=== PATIENT | female | born 1990 | race African-American/Black ===

== ENCOUNTER 2024-04-26 22:17 | Inpatient (IN) | payer OTHER ==
[2024-04-26 23:16] VITALS: BMI 17.9
[2024-04-26] MEDS ORDERED: guaiFENesin 600 MG TABLET.ER (FP) PO PRN (23:30)
[2024-04-26] MEDS ORDERED: IBUPROFEN 400 MG TABLET (FP) PO PRN (23:30)
[2024-04-26] MEDS ORDERED: POLYETHYLENE GLYCOL (HEALTHYLAX) 3350 17 GM PACKET PO PRN (23:30)
[2024-04-26] MEDS ORDERED: BENZONATATE 200 MG CAPSULE PO PRN (23:30)
[2024-04-26] MEDS ORDERED: LOPERAMIDE HCL 2 MG CAPSULE PO PRN (23:30)
[2024-04-26] MEDS ORDERED: DICYCLOMINE HCL 10 MG CAPSULE PO PRN (23:30)
[2024-04-26] MEDS ORDERED: ONDANSETRON *ODT* 4 MG TABLET SL PRN (23:30)
[2024-04-26] MEDS ORDERED: BENZOCAINE/MENTHOL (CHLORASEPTIC ) LOZENGE MM PRN (23:30)
[2024-04-26] MEDS ORDERED: MAGNESIUM HYDROX 2400MG/30ML ORAL SUSPENSION 30 ML CUP PO PRN (23:30)
[2024-04-26] MEDS ORDERED: BISMUTH SUBSALICYLATE 524 MG/30 ML PO PRN (23:30)
[2024-04-26] MEDS ORDERED: MAG HYDROX/AL HYDROX/SIMETH 30 ML UNIT-DOSE CUP PO PRN (23:30)
[2024-04-26] MEDS ORDERED: propRANOLol HCL 10 MG TABLET PO ONE (23:55)
[2024-04-27] MEDS: IBUPROFEN 600 MG TABLET (FP) PO PRN (01:32)
[2024-04-27] MEDS: propRANOLol HCL 10 MG TABLET PO ONE (01:32)
[2024-04-27] MEDS ORDERED: chlordiazePOXIDE HCL 25 MG CAPSULE PO PRN (09:23)
[2024-04-27] MEDS: chlordiazePOXIDE HCL 25 MG CAPSULE PO SCH (10:03)
[2024-04-27] MEDS: PRENATAL VITAMINS W/ FOLIC ACID TABLET (FP) PO SCH (10:03)
[2024-04-27] MEDS: ACETAMINOPHEN 325 MG TABLET (FP) PO PRN (17:19)
[2024-04-27] MEDS: MELATONIN 5 MG TABLETS PO SCH (22:11)
[2024-04-27] MEDS: THIAMINE 100 MG TABLET PO SCH (22:12)
[2024-04-27] MEDS: METHOCARBAMOL 500 MG TABLET PO PRN (22:12)
[2024-04-28 12:09] LABS: EOS % 4.9 % (0-4.5); HEMATOCRIT 36.3 % (32.4-45.2); HEMOGLOBIN 11.7 GM/dL (10.7-15.3); LYMPH % 33.3 % (8-40); MCH 27.2 pg (25.7-33.7); MCHC 32.1 g/dl (32.0-36.0); MEAN CELL VOLUME 84.8 fl (80-96); MEAN PLT VOLUME 9.1 fl (7.5-11.1); MONO % 13.3 % (3.8-10.2); NEUT % 47.5 % (42.8-82.8); PLATELET COUNT 141 10^3/uL (134-434); RBC 4.28 M/mm3 (3.60-5.2); RDW 14.3 % (11.6-15.6); WHITE BLOOD COUNT 4.1 K/mm3 (4.0-10.0)
[2024-04-29] MEDS: chlordiazePOXIDE HCL 25 MG CAPSULE PO SCH (05:42)
[2024-04-29] MEDS: hydrOXYzine PAMOATE 25 MG CAPSULE (FP) PO PRN (22:11)
[2024-04-30] MEDS ORDERED: chlordiazePOXIDE HCL 10 MG CAPSULE PO PRN
[2024-04-30] MEDS: chlordiazePOXIDE HCL 10 MG CAPSULE PO SCH (05:35)
[2024-05-01] MEDS: chlordiazePOXIDE HCL 10 MG CAPSULE PO SCH (05:54)
[2024-05-02] MEDS: chlordiazePOXIDE HCL 10 MG CAPSULE PO ONE (05:55)
[2024-05-02 06:56] VITALS: RESP 16
[2024-05-02 09:04] VITALS: BP 131/79; PULSE 68; TEMP 98.1
== END 2024-05-02 08:56 | disposition home or self-care (01) | DRG 775 ==
LOC: YASAS 22:17 → Y3N 23:42
PROVIDERS: ADMIT Allergy & Immunology; ATTEND Surgery
PROC: HZ2ZZZZ Detoxification Services for Substance Abuse Treatment (ICD-10-PCS; principal; 2024-04-26)
DX: F10.230 Alcohol dependence with withdrawal, uncomplicated (principal); F12.20 Cannabis dependence, uncomplicated; F19.24 Other psychoactive substance dependence with psychoactive substance-induced mood disorder; F41.9 Anxiety disorder, unspecified; F43.20 Adjustment disorder, unspecified; R26.89 Other abnormalities of gait and mobility
CPT/HCPCS: 36415; 80305; 80307; 81025; 85025

== ENCOUNTER 2024-05-16 07:00 | Inpatient (IN) | payer OTHER ==
[2024-05-16 07:52] VITALS: BMI 17.4
[2024-05-16] MEDS ORDERED: LOPERAMIDE HCL 2 MG CAPSULE PO PRN (09:04)
[2024-05-16] MEDS ORDERED: NICOTINE POLACRILEX 2 MG GUM BUC PRN (09:04)
[2024-05-16] MEDS ORDERED: MAG HYDROX/AL HYDROX/SIMETH 30 ML UNIT-DOSE CUP PO PRN (09:04)
[2024-05-16] MEDS ORDERED: DICYCLOMINE HCL 10 MG CAPSULE PO PRN (09:04)
[2024-05-16] MEDS ORDERED: guaiFENesin 600 MG TABLET.ER (FP) PO PRN (09:04)
[2024-05-16] MEDS ORDERED: P-EPHED 60MG/TRIPROLIDI 2.5MG TABLET PO PRN (09:04)
[2024-05-16] MEDS ORDERED: BENZONATATE 200 MG CAPSULE PO PRN (09:04)
[2024-05-16] MEDS ORDERED: NICOTINE POLACRILEX 2 MG LOZENGE BC PRN (09:04)
[2024-05-16] MEDS ORDERED: ONDANSETRON *ODT* 4 MG TABLET SL PRN (09:04)
[2024-05-16] MEDS ORDERED: BENZOCAINE/MENTHOL (CHLORASEPTIC ) LOZENGE MM PRN (09:04)
[2024-05-16] MEDS ORDERED: MAGNESIUM HYDROX 2400MG/30ML ORAL SUSPENSION 30 ML CUP PO PRN (09:04)
[2024-05-16] MEDS ORDERED: POLYETHYLENE GLYCOL (HEALTHYLAX) 3350 17 GM PACKET PO PRN (09:04)
[2024-05-16] MEDS ORDERED: ACETAMINOPHEN 325 MG TABLET (FP) PO PRN (09:04)
[2024-05-16] MEDS ORDERED: IBUPROFEN 400 MG TABLET (FP) PO PRN (09:04)
[2024-05-16] MEDS ORDERED: BISMUTH SUBSALICYLATE 524 MG/30 ML PO PRN (09:04)
[2024-05-16] MEDS ORDERED: IBUPROFEN 600 MG TABLET (FP) PO ONE (10:16)
[2024-05-16] MEDS ORDERED: hydrOXYzine PAMOATE 25 MG CAPSULE (FP) PO ONE (10:16)
[2024-05-16] MEDS: MELATONIN 5 MG TABLETS PO SCH (21:14)
[2024-05-16] MEDS: THIAMINE 100 MG TABLET PO SCH (21:14)
[2024-05-17] MEDS: IBUPROFEN 600 MG TABLET (FP) PO PRN (10:10)
[2024-05-17] MEDS ORDERED: diazePAM 5 MG TABLET PO PRN (10:33)
[2024-05-17] MEDS: diazePAM 5 MG TABLET PO SCH (11:51)
[2024-05-17] MEDS: hydrOXYzine PAMOATE 25 MG CAPSULE (FP) PO PRN (17:46)
[2024-05-17] MEDS: METHOCARBAMOL 500 MG TABLET PO PRN (22:34)
[2024-05-19] MEDS: diazePAM 5 MG TABLET PO SCH (05:52)
[2024-05-19 10:12] VITALS: RESP 16
[2024-05-19 13:25] VITALS: BP 134/78; PULSE 82; TEMP 97.6
[2024-05-20] MEDS ORDERED: diazePAM 5 MG TABLET PO SCH (06:00)
[2024-05-21] MEDS ORDERED: diazePAM 5 MG TABLET PO ONE (06:00)
== END 2024-05-19 14:05 | disposition home or self-care (01) | DRG 775 ==
LOC: YASAS 07:00 → Y3N 09:05
PROVIDERS: ADMIT Allergy & Immunology; ATTEND Surgery
PROC: HZ2ZZZZ Detoxification Services for Substance Abuse Treatment (ICD-10-PCS; principal; 2024-05-16)
DX: F10.230 Alcohol dependence with withdrawal, uncomplicated (principal); F12.20 Cannabis dependence, uncomplicated; F17.210 Nicotine dependence, cigarettes, uncomplicated; F41.9 Anxiety disorder, unspecified; Z91.199 Patient's noncompliance with other medical treatment and regimen due to unspecified reason; Z56.0 Unemployment, unspecified; Z59.00 Homelessness unspecified
CPT/HCPCS: 80305; 81025

== ENCOUNTER 2024-05-24 14:50 | Inpatient (IN) | payer OTHER ==
[2024-05-24 15:36] VITALS: BMI 17.9
[2024-05-24] MEDS ORDERED: ACETAMINOPHEN 325 MG TABLET (FP) PO PRN (19:00)
[2024-05-24] MEDS ORDERED: ONDANSETRON *ODT* 4 MG TABLET SL PRN (19:00)
[2024-05-24] MEDS ORDERED: guaiFENesin 600 MG TABLET.ER (FP) PO PRN (19:00)
[2024-05-24] MEDS ORDERED: MAGNESIUM HYDROX 2400MG/30ML ORAL SUSPENSION 30 ML CUP PO PRN (19:00)
[2024-05-24] MEDS ORDERED: BENZONATATE 200 MG CAPSULE PO PRN (19:00)
[2024-05-24] MEDS ORDERED: BENZOCAINE/MENTHOL (CHLORASEPTIC ) LOZENGE MM PRN (19:00)
[2024-05-24] MEDS ORDERED: POLYETHYLENE GLYCOL (HEALTHYLAX) 3350 17 GM PACKET PO PRN (19:00)
[2024-05-24] MEDS ORDERED: IBUPROFEN 400 MG TABLET (FP) PO PRN (19:00)
[2024-05-24] MEDS ORDERED: DICYCLOMINE HCL 10 MG CAPSULE PO PRN (19:00)
[2024-05-24] MEDS ORDERED: MAG HYDROX/AL HYDROX/SIMETH 30 ML UNIT-DOSE CUP PO PRN (19:00)
[2024-05-24] MEDS ORDERED: BISMUTH SUBSALICYLATE 524 MG/30 ML PO PRN (19:00)
[2024-05-24] MEDS ORDERED: LOPERAMIDE HCL 2 MG CAPSULE PO PRN (19:00)
[2024-05-24] MEDS: MELATONIN 5 MG TABLETS PO SCH (21:18)
[2024-05-24] MEDS: IBUPROFEN 600 MG TABLET (FP) PO PRN (21:19)
[2024-05-24] MEDS: METHOCARBAMOL 500 MG TABLET PO PRN (21:19)
[2024-05-24] MEDS: THIAMINE 100 MG TABLET PO SCH (21:20)
[2024-05-25] MEDS: hydrOXYzine PAMOATE 25 MG CAPSULE (FP) PO PRN (10:31)
[2024-05-25 13:04] VITALS: BP 138/87; PULSE 74; RESP 18; TEMP 97.3
== END 2024-05-25 14:06 | disposition other institution (70) | DRG 775 ==
LOC: YASAS 14:50 → Y3N 19:06
PROVIDERS: ADMIT Allergy & Immunology; ATTEND Surgery
PROC: HZ2ZZZZ Detoxification Services for Substance Abuse Treatment (ICD-10-PCS; principal; 2024-05-24)
DX: F10.20 Alcohol dependence, uncomplicated (principal); F10.220 Alcohol dependence with intoxication, uncomplicated; F12.20 Cannabis dependence, uncomplicated; F17.210 Nicotine dependence, cigarettes, uncomplicated; Z87.59 Personal history of other complications of pregnancy, childbirth and the puerperium; Z86.59 Personal history of other mental and behavioral disorders; Z91.199 Patient's noncompliance with other medical treatment and regimen due to unspecified reason; Z59.02 Unsheltered homelessness
CPT/HCPCS: 36415; 80305; 80307; 81025; 86803; 87811

== ENCOUNTER 2024-05-25 14:11 | Inpatient (IN) | payer OTHER ==
[2024-05-25] MEDS ORDERED: ACETAMINOPHEN 325 MG TABLET (FP) PO PRN (16:22)
[2024-05-25] MEDS ORDERED: NICOTINE POLACRILEX 2 MG LOZENGE BC PRN (16:22)
[2024-05-25] MEDS ORDERED: POLYETHYLENE GLYCOL (HEALTHYLAX) 3350 17 GM PACKET PO PRN (16:22)
[2024-05-25] MEDS ORDERED: MAGNESIUM HYDROX 2400MG/30ML ORAL SUSPENSION 30 ML CUP PO PRN (16:22)
[2024-05-25] MEDS ORDERED: BENZONATATE 200 MG CAPSULE PO PRN (16:22)
[2024-05-25] MEDS ORDERED: MAG HYDROX/AL HYDROX/SIMETH 30 ML UNIT-DOSE CUP PO PRN (16:22)
[2024-05-25] MEDS ORDERED: NALOXONE (NARCAN) HCL 4 MG/0.1 ML SPRAY NS PRN (16:22)
[2024-05-25] MEDS ORDERED: NICOTINE POLACRILEX 2 MG GUM BUC PRN (16:22)
[2024-05-25] MEDS ORDERED: NALOXONE HCL 0.4 MG/ML VIAL IVPUSH PRN (16:22)
[2024-05-25] MEDS ORDERED: LOPERAMIDE HCL 2 MG CAPSULE PO PRN (16:22)
[2024-05-25] MEDS ORDERED: NICOTINE 14 MG/24 HOURS TOPICAL PATCH TD PRN (16:22)
[2024-05-25] MEDS ORDERED: guaiFENesin 600 MG TABLET.ER (FP) PO PRN (16:22)
[2024-05-25] MEDS ORDERED: BENZOCAINE/MENTHOL (CHLORASEPTIC ) LOZENGE MM PRN (16:22)
[2024-05-25] MEDS: THIAMINE 100 MG TABLET PO SCH (21:30)
[2024-05-25] MEDS: MELATONIN 5 MG TABLETS PO SCH (21:31)
[2024-05-25] MEDS: hydrOXYzine PAMOATE 25 MG CAPSULE (FP) PO PRN (21:31)
[2024-05-25] MEDS: IBUPROFEN 600 MG TABLET (FP) PO PRN (21:33)
[2024-05-26] MEDS: PRENATAL VITAMINS W/ FOLIC ACID TABLET (FP) PO SCH (10:06)
[2024-05-26] MEDS: SUVOREXANT 10 MG TABLET PO PRN (21:36)
[2024-05-26] MEDS: IBUPROFEN 400 MG TABLET (FP) PO PRN (21:37)
[2024-05-26] MEDS: hydrOXYzine PAMOATE 25 MG CAPSULE (FP) PO PRN (21:37)
[2024-05-27] MEDS: METHOCARBAMOL 500 MG TABLET PO PRN (06:46)
[2024-05-27] MEDS: metoPROLOL SUCCINATE 25 MG TAB.SR.24H (FP) PO SCH (11:10)
[2024-05-27] MEDS: LACTULOSE 20 GM/30 ML UDC (FOR ORAL USE ONLY) PO SCH (13:11)
[2024-05-30] MEDS: SUVOREXANT 10 MG TABLET PO PRN (21:39)
[2024-06-01 06:59] VITALS: RESP 16; TEMP 97.3
[2024-06-02 10:57] VITALS: BP 137/70; PULSE 76
== END 2024-06-02 14:25 | disposition home or self-care (01) | DRG 772 ==
LOC: YASAS 14:11 → Y5N 14:20
PROVIDERS: ADMIT Allergy & Immunology; ATTEND Psychiatry & Neurology Pain Medicine
PROC: HZ42ZZZ Group Counseling for Substance Abuse Treatment, Cognitive-Behavioral (ICD-10-PCS; principal; 2024-05-25)
DX: F10.20 Alcohol dependence, uncomplicated (principal); F10.280 Alcohol dependence with alcohol-induced anxiety disorder; F10.282 Alcohol dependence with alcohol-induced sleep disorder; F32.A Depression, unspecified; F42.9 Obsessive-compulsive disorder, unspecified; F90.9 Attention-deficit hyperactivity disorder, unspecified type; F12.10 Cannabis abuse, uncomplicated; I10 Essential (primary) hypertension; Z87.42 Personal history of other diseases of the female genital tract; Z86.69 Personal history of other diseases of the nervous system and sense organs; Z59.02 Unsheltered homelessness; Z72.0 Tobacco use
CPT/HCPCS: 36415; 82140; 86803

== ENCOUNTER 2024-06-12 20:01 | Inpatient (IN) | payer OTHER ==
[2024-06-12 20:40] VITALS: BMI 17.9
[2024-06-12] MEDS ORDERED: LOPERAMIDE HCL 2 MG CAPSULE PO PRN (21:02)
[2024-06-12] MEDS ORDERED: POLYETHYLENE GLYCOL (HEALTHYLAX) 3350 17 GM PACKET PO PRN (21:02)
[2024-06-12] MEDS ORDERED: IBUPROFEN 600 MG TABLET (FP) PO PRN (21:02)
[2024-06-12] MEDS ORDERED: BENZONATATE 200 MG CAPSULE PO PRN (21:02)
[2024-06-12] MEDS ORDERED: IBUPROFEN 400 MG TABLET (FP) PO PRN (21:02)
[2024-06-12] MEDS ORDERED: ONDANSETRON *ODT* 4 MG TABLET SL PRN (21:02)
[2024-06-12] MEDS ORDERED: MAGNESIUM HYDROX 2400MG/30ML ORAL SUSPENSION 30 ML CUP PO PRN (21:02)
[2024-06-12] MEDS ORDERED: NALOXONE (NARCAN) HCL 4 MG/0.1 ML SPRAY NS PRN (21:02)
[2024-06-12] MEDS ORDERED: BISMUTH SUBSALICYLATE 524 MG/30 ML PO PRN (21:02)
[2024-06-12] MEDS ORDERED: NALOXONE HCL 0.4 MG/ML VIAL IM PRN (21:02)
[2024-06-12] MEDS ORDERED: guaiFENesin 600 MG TABLET.ER (FP) PO PRN (21:02)
[2024-06-12] MEDS ORDERED: BENZOCAINE/MENTHOL (CHLORASEPTIC ) LOZENGE MM PRN (21:02)
[2024-06-12] MEDS ORDERED: ACETAMINOPHEN 325 MG TABLET (FP) PO PRN (21:02)
[2024-06-12] MEDS ORDERED: NICOTINE POLACRILEX 4 MG GUM BUC PRN (21:02)
[2024-06-12] MEDS ORDERED: MAG HYDROX/AL HYDROX/SIMETH 30 ML UNIT-DOSE CUP PO PRN (21:02)
[2024-06-12] MEDS ORDERED: DICYCLOMINE HCL 10 MG CAPSULE PO PRN (21:02)
[2024-06-12] MEDS: MELATONIN 5 MG TABLETS PO SCH (22:16)
[2024-06-12] MEDS: THIAMINE 100 MG TABLET PO SCH (22:16)
[2024-06-12] MEDS: hydrOXYzine PAMOATE 25 MG CAPSULE (FP) PO PRN (22:16)
[2024-06-13] MEDS: NICOTINE 14 MG/24 HOURS TOPICAL PATCH TD SCH (09:38)
[2024-06-13 09:44] LABS: HEMATOCRIT 31.4 % (32.4-45.2); HEMOGLOBIN 10.5 GM/dL (10.7-15.3); MCH 27.1 pg (25.7-33.7); MCHC 33.4 g/dl (32.0-36.0); MEAN CELL VOLUME 81.4 fl (80-96); MEAN PLT VOLUME 9.5 fl (7.5-11.1); PLATELET COUNT 204 10^3/uL (134-434); RBC 3.86 M/mm3 (3.60-5.2); RDW 13.6 % (11.6-15.6); WHITE BLOOD COUNT 3.2 K/mm3 (4.0-10.0)
[2024-06-13 09:47] LABS: CALCIUM 8.5 mg/dL (8.5-10.1)
[2024-06-13 09:48] LABS: ALBUMIN 3.5 g/dl (3.4-5.0); BLOOD UREA NITROGEN 8.4 mg/dL (7-18)
[2024-06-13 09:51] LABS: CREATININE 0.5 mg/dL (0.55-1.3)
[2024-06-13 09:53] LABS: BILIRUBIN,TOTAL 0.4 mg/dL (0.2-1); TOT PROT 6.6 g/dl (6.4-8.2)
[2024-06-13] MEDS ORDERED: diazePAM 5 MG TABLET PO PRN (18:45)
[2024-06-13 22:41] VITALS: RESP 16
[2024-06-14] MEDS: diazePAM 5 MG TABLET PO SCH (00:05)
[2024-06-14 06:40] VITALS: TEMP 97.1
[2024-06-14] MEDS: metoPROLOL SUCCINATE 25 MG TAB.SR.24H (FP) PO SCH (10:28)
[2024-06-14 13:27] VITALS: BP 116/65; PULSE 85
[2024-06-15] MEDS ORDERED: diazePAM 5 MG TABLET PO SCH (06:00)
[2024-06-16] MEDS ORDERED: diazePAM 5 MG TABLET PO SCH (06:00)
[2024-06-17] MEDS ORDERED: diazePAM 5 MG TABLET PO ONE (06:00)
== END 2024-06-14 14:42 | disposition home or self-care (01) | DRG 775 ==
LOC: YASAS 20:01 → Y6N 21:16
PROVIDERS: ADMIT Allergy & Immunology; ATTEND Surgery
PROC: HZ2ZZZZ Detoxification Services for Substance Abuse Treatment (ICD-10-PCS; principal; 2024-06-12)
DX: F10.230 Alcohol dependence with withdrawal, uncomplicated (principal); F12.20 Cannabis dependence, uncomplicated; F17.290 Nicotine dependence, other tobacco product, uncomplicated; F41.9 Anxiety disorder, unspecified; I10 Essential (primary) hypertension; R51.9 Headache, unspecified
CPT/HCPCS: 36415; 80053; 80305; 80307; 81025; 85027; 86780

== ENCOUNTER 2024-06-24 16:11 | Inpatient (IN) | payer OTHER ==
[2024-06-24 17:23] VITALS: BMI 17.9
[2024-06-24] MEDS ORDERED: guaiFENesin 600 MG TABLET.ER (FP) PO PRN (18:56)
[2024-06-24] MEDS ORDERED: ONDANSETRON *ODT* 4 MG TABLET SL PRN (18:56)
[2024-06-24] MEDS ORDERED: MAGNESIUM HYDROX 2400MG/30ML ORAL SUSPENSION 30 ML CUP PO PRN (18:56)
[2024-06-24] MEDS ORDERED: MAG HYDROX/AL HYDROX/SIMETH 30 ML UNIT-DOSE CUP PO PRN (18:56)
[2024-06-24] MEDS ORDERED: NICOTINE POLACRILEX 2 MG LOZENGE BC PRN (18:56)
[2024-06-24] MEDS ORDERED: BENZOCAINE/MENTHOL (CHLORASEPTIC ) LOZENGE MM PRN (18:56)
[2024-06-24] MEDS ORDERED: BISMUTH SUBSALICYLATE 524 MG/30 ML PO PRN (18:56)
[2024-06-24] MEDS ORDERED: ACETAMINOPHEN 325 MG TABLET (FP) PO PRN (18:56)
[2024-06-24] MEDS ORDERED: BENZONATATE 200 MG CAPSULE PO PRN (18:56)
[2024-06-24] MEDS ORDERED: LOPERAMIDE HCL 2 MG CAPSULE PO PRN (18:56)
[2024-06-24] MEDS ORDERED: IBUPROFEN 400 MG TABLET (FP) PO PRN (18:56)
[2024-06-24] MEDS ORDERED: DICYCLOMINE HCL 10 MG CAPSULE PO PRN (18:56)
[2024-06-24] MEDS ORDERED: NICOTINE POLACRILEX 2 MG GUM BUC PRN (18:56)
[2024-06-24] MEDS ORDERED: POLYETHYLENE GLYCOL (HEALTHYLAX) 3350 17 GM PACKET PO PRN (18:56)
[2024-06-24] MEDS: THIAMINE 100 MG TABLET PO SCH (21:11)
[2024-06-24] MEDS: MELATONIN 5 MG TABLETS PO SCH (21:11)
[2024-06-24] MEDS: hydrOXYzine PAMOATE 25 MG CAPSULE (FP) PO PRN (21:11)
[2024-06-25] MEDS: IBUPROFEN 600 MG TABLET (FP) PO PRN (11:38)
[2024-06-25] MEDS ORDERED: metoPROLOL SUCCINATE 25 MG TAB.SR.24H (FP) PO SCH (15:00)
[2024-06-25] MEDS: metoPROLOL SUCCINATE 25 MG TAB.SR.24H (FP) PO SCH (15:10)
[2024-06-25] MEDS: METHOCARBAMOL 500 MG TABLET PO PRN (18:19)
[2024-06-26 12:19] VITALS: BP 121/86; PULSE 64; RESP 17; TEMP 97.7
== END 2024-06-26 13:36 | disposition home or self-care (01) | DRG 775 ==
LOC: YASAS 16:11 → Y3N 20:25
PROVIDERS: ADMIT Allergy & Immunology; ATTEND Surgery
PROC: HZ2ZZZZ Detoxification Services for Substance Abuse Treatment (ICD-10-PCS; principal; 2024-06-24)
DX: F10.230 Alcohol dependence with withdrawal, uncomplicated (principal); F12.20 Cannabis dependence, uncomplicated; F17.210 Nicotine dependence, cigarettes, uncomplicated; I10 Essential (primary) hypertension
CPT/HCPCS: 80305; 80307; 81025

== ENCOUNTER 2024-07-02 15:12 | Inpatient (IN) | payer OTHER ==
[2024-07-02 15:35] VITALS: BMI 16.6
[2024-07-02] MEDS ORDERED: BENZOCAINE/MENTHOL (CHLORASEPTIC ) LOZENGE MM PRN (17:16)
[2024-07-02] MEDS ORDERED: ONDANSETRON *ODT* 4 MG TABLET SL PRN (17:16)
[2024-07-02] MEDS ORDERED: POLYETHYLENE GLYCOL (HEALTHYLAX) 3350 17 GM PACKET PO PRN (17:16)
[2024-07-02] MEDS ORDERED: MAG HYDROX/AL HYDROX/SIMETH 30 ML UNIT-DOSE CUP PO PRN (17:16)
[2024-07-02] MEDS ORDERED: LOPERAMIDE HCL 2 MG CAPSULE PO PRN (17:16)
[2024-07-02] MEDS ORDERED: IBUPROFEN 400 MG TABLET (FP) PO PRN (17:16)
[2024-07-02] MEDS ORDERED: DICYCLOMINE HCL 10 MG CAPSULE PO PRN (17:16)
[2024-07-02] MEDS ORDERED: MAGNESIUM HYDROX 2400MG/30ML ORAL SUSPENSION 30 ML CUP PO PRN (17:16)
[2024-07-02] MEDS ORDERED: BENZONATATE 200 MG CAPSULE PO PRN (17:16)
[2024-07-02] MEDS ORDERED: IBUPROFEN 600 MG TABLET (FP) PO PRN (17:16)
[2024-07-02] MEDS ORDERED: BISMUTH SUBSALICYLATE 524 MG/30 ML PO PRN (17:16)
[2024-07-02] MEDS ORDERED: guaiFENesin 600 MG TABLET.ER (FP) PO PRN (17:16)
[2024-07-02] MEDS ORDERED: ACETAMINOPHEN 325 MG TABLET (FP) PO PRN (17:16)
[2024-07-02 21:07] VITALS: RESP 18
[2024-07-02] MEDS: THIAMINE 100 MG TABLET PO SCH (22:33)
[2024-07-02] MEDS: hydrOXYzine PAMOATE 25 MG CAPSULE (FP) PO PRN (22:33)
[2024-07-02] MEDS: MELATONIN 5 MG TABLETS PO SCH (22:33)
[2024-07-02] MEDS: METHOCARBAMOL 500 MG TABLET PO PRN (22:33)
[2024-07-03 09:25] VITALS: BP 123/88; PULSE 89; TEMP 98.4
== END 2024-07-03 11:21 | disposition left against medical advice (07) | DRG 770 ==
LOC: YASAS 15:12 → Y6N 20:31
PROVIDERS: ADMIT Allergy & Immunology; ATTEND Surgery
PROC: HZ2ZZZZ Detoxification Services for Substance Abuse Treatment (ICD-10-PCS; principal; 2024-07-02)
DX: F10.230 Alcohol dependence with withdrawal, uncomplicated (principal); F10.220 Alcohol dependence with intoxication, uncomplicated; F12.20 Cannabis dependence, uncomplicated; I10 Essential (primary) hypertension; Z56.0 Unemployment, unspecified
CPT/HCPCS: 80305; 80307; 81025

== ENCOUNTER 2024-07-08 18:57 | Inpatient (IN) | payer OTHER ==
[2024-07-08 19:34] VITALS: BMI 17.2
[2024-07-08] MEDS ORDERED: guaiFENesin 600 MG TABLET.ER (FP) PO PRN (21:20)
[2024-07-08] MEDS ORDERED: BENZONATATE 200 MG CAPSULE PO PRN (21:20)
[2024-07-08] MEDS ORDERED: MAG HYDROX/AL HYDROX/SIMETH 30 ML UNIT-DOSE CUP PO PRN (21:20)
[2024-07-08] MEDS ORDERED: BISMUTH SUBSALICYLATE 524 MG/30 ML PO PRN (21:20)
[2024-07-08] MEDS ORDERED: POLYETHYLENE GLYCOL (HEALTHYLAX) 3350 17 GM PACKET PO PRN (21:20)
[2024-07-08] MEDS ORDERED: DICYCLOMINE HCL 10 MG CAPSULE PO PRN (21:20)
[2024-07-08] MEDS ORDERED: IBUPROFEN 400 MG TABLET (FP) PO PRN (21:20)
[2024-07-08] MEDS ORDERED: LOPERAMIDE HCL 2 MG CAPSULE PO PRN (21:20)
[2024-07-08] MEDS ORDERED: BENZOCAINE/MENTHOL (CHLORASEPTIC ) LOZENGE MM PRN (21:20)
[2024-07-08] MEDS ORDERED: MAGNESIUM HYDROX 2400MG/30ML ORAL SUSPENSION 30 ML CUP PO PRN (21:20)
[2024-07-08] MEDS ORDERED: ONDANSETRON *ODT* 4 MG TABLET SL PRN (21:20)
[2024-07-08] MEDS: METHOCARBAMOL 500 MG TABLET PO PRN (22:37)
[2024-07-08] MEDS: MELATONIN 5 MG TABLETS PO SCH (22:37)
[2024-07-08] MEDS: THIAMINE 100 MG TABLET PO SCH (22:37)
[2024-07-09] MEDS: metoPROLOL SUCCINATE 25 MG TAB.SR.24H (FP) PO SCH (10:25)
[2024-07-09] MEDS: diazePAM 5 MG TABLET PO SCH (10:48)
[2024-07-09] MEDS: diazePAM 5 MG TABLET PO PRN (15:14)
[2024-07-09] MEDS: ACETAMINOPHEN 325 MG TABLET (FP) PO PRN (17:10)
[2024-07-10] MEDS: diazePAM 5 MG TABLET PO SCH (06:11)
[2024-07-10] MEDS: ACETAMINOPHEN 325 MG TABLET (FP) PO PRN (06:12)
[2024-07-10 17:17] VITALS: PULSE 62; RESP 20; TEMP 98
[2024-07-10 18:31] VITALS: BP 152/107
[2024-07-11] MEDS ORDERED: diazePAM 5 MG TABLET PO SCH (06:00)
[2024-07-12] MEDS ORDERED: diazePAM 5 MG TABLET PO ONE (06:00)
== END 2024-07-10 18:02 | disposition left against medical advice (07) | DRG 770 ==
LOC: YASAS 18:57 → Y3N 22:15
PROVIDERS: ADMIT Allergy & Immunology; ATTEND Psychiatry & Neurology Pain Medicine
PROC: HZ2ZZZZ Detoxification Services for Substance Abuse Treatment (ICD-10-PCS; principal; 2024-07-08)
DX: F10.230 Alcohol dependence with withdrawal, uncomplicated (principal); F10.220 Alcohol dependence with intoxication, uncomplicated; F12.20 Cannabis dependence, uncomplicated; F17.210 Nicotine dependence, cigarettes, uncomplicated; F41.9 Anxiety disorder, unspecified; R00.0 Tachycardia, unspecified; Z91.148 Patient's other noncompliance with medication regimen for other reason; Z56.0 Unemployment, unspecified; Z59.00 Homelessness unspecified
CPT/HCPCS: 80305; 80307; 81025

== ENCOUNTER 2024-09-07 21:37 | Inpatient (IN) | payer OTHER ==
[2024-09-07 22:40] VITALS: BMI 16.0
[2024-09-07] MEDS ORDERED: IBUPROFEN 600 MG TABLET (FP) PO PRN (23:04)
[2024-09-07] MEDS ORDERED: IBUPROFEN 400 MG TABLET (FP) PO PRN (23:04)
[2024-09-07] MEDS ORDERED: LOPERAMIDE HCL 2 MG CAPSULE PO PRN (23:04)
[2024-09-07] MEDS ORDERED: BENZONATATE 200 MG CAPSULE PO PRN (23:04)
[2024-09-07] MEDS ORDERED: guaiFENesin 600 MG TABLET.ER (FP) PO PRN (23:04)
[2024-09-07] MEDS ORDERED: ONDANSETRON *ODT* 4 MG TABLET SL PRN (23:04)
[2024-09-07] MEDS ORDERED: BENZOCAINE/MENTHOL (CHLORASEPTIC ) LOZENGE MM PRN (23:04)
[2024-09-07] MEDS ORDERED: NALOXONE (NARCAN) HCL 4 MG/0.1 ML SPRAY NS PRN (23:04)
[2024-09-07] MEDS ORDERED: ACETAMINOPHEN 325 MG TABLET (FP) PO PRN (23:04)
[2024-09-07] MEDS ORDERED: BISMUTH SUBSALICYLATE 524 MG/30 ML PO PRN (23:04)
[2024-09-07] MEDS ORDERED: MAG HYDROX/AL HYDROX/SIMETH 30 ML UNIT-DOSE CUP PO PRN (23:04)
[2024-09-07] MEDS ORDERED: DICYCLOMINE HCL 10 MG CAPSULE PO PRN (23:04)
[2024-09-07] MEDS ORDERED: POLYETHYLENE GLYCOL (HEALTHYLAX) 3350 17 GM PACKET PO PRN (23:04)
[2024-09-07] MEDS ORDERED: NALOXONE (NYS OPIOID OVERDOSE PROGRAM) 4 MG/0.1 ML SPRAY NS PRN ×2 (23:04→23:25)
[2024-09-07] MEDS ORDERED: MAGNESIUM HYDROX 2400MG/30ML ORAL SUSPENSION 30 ML CUP PO PRN (23:04)
[2024-09-08] MEDS ORDERED: chlordiazePOXIDE HCL 25 MG CAPSULE PO PRN (08:56)
[2024-09-08] MEDS: chlordiazePOXIDE HCL 25 MG CAPSULE PO ONE (09:10)
[2024-09-08] MEDS: metoPROLOL SUCCINATE 25 MG TAB.SR.24H (FP) PO SCH (10:23)
[2024-09-08] MEDS: chlordiazePOXIDE HCL 25 MG CAPSULE PO SCH (10:23)
[2024-09-08] MEDS: buPROPion HCL 75 MG TABLET PO SCH (10:33)
[2024-09-08] MEDS: hydrOXYzine PAMOATE 25 MG CAPSULE (FP) PO PRN (13:43)
[2024-09-08 15:00] LABS: HEMATOCRIT 38.5 % (32.4-45.2); HEMOGLOBIN 12.2 GM/dL (10.7-15.3); MCH 26.9 pg (25.7-33.7); MCHC 31.6 g/dl (32.0-36.0); MEAN CELL VOLUME 85.2 fl (80-96); MEAN PLT VOLUME 10.3 fl (7.5-11.1); PLATELET COUNT 163 10^3/uL (134-434); RBC 4.51 M/mm3 (3.60-5.2); RDW 17.4 % (11.6-15.6); WHITE BLOOD COUNT 3.7 K/mm3 (4.0-10.0)
[2024-09-08 15:35] LABS: CHLORIDE 104 mmol/L (98-107); POTASSIUM 3.9 mmol/L (3.5-5.1); SODIUM 138 mmol/L (136-145)
[2024-09-08 15:38] LABS: ALBUMIN 4.2 g/dl (3.4-5.0); ANION GAP 9 mmol/L (4-13); BLOOD UREA NITROGEN 10.5 mg/dL (7-18); CALCIUM 9.3 mg/dL (8.5-10.1); CO2 25 mmol/L (21-32); GLUCOSE,RANDOM 181 mg/dL (74-106)
[2024-09-08] MEDS: NALTREXONE HCL 50 MG TABLET PO SCH (15:38)
[2024-09-08 15:41] LABS: CREATININE 0.9 mg/dL (0.55-1.3); SGOT/AST 152 U/L (15-37); SGPT/ALT 65 U/L (13-61)
[2024-09-08 15:43] LABS: BILIRUBIN,TOTAL 0.7 mg/dL (0.2-1)
[2024-09-08 15:44] LABS: ALK PHOS 89 U/L (45-117)
[2024-09-08] MEDS ORDERED: MELATONIN 5 MG TABLETS PO SCH (22:00)
[2024-09-08] MEDS: THIAMINE 100 MG TABLET PO SCH (22:37)
[2024-09-08] MEDS: MELATONIN 5 MG TABLETS PO SCH (22:37)
[2024-09-08] MEDS: METHOCARBAMOL 500 MG TABLET PO PRN (22:40)
[2024-09-09] MEDS ORDERED: LORazepam 1 MG TABLET PO PRN (12:24)
[2024-09-09] MEDS: LORazepam 2 MG TABLET PO SCH (17:42)
[2024-09-10] MEDS ORDERED: chlordiazePOXIDE HCL 25 MG CAPSULE PO SCH (05:00)
[2024-09-11] MEDS ORDERED: chlordiazePOXIDE HCL 10 MG CAPSULE PO PRN
[2024-09-11] MEDS ORDERED: chlordiazePOXIDE HCL 10 MG CAPSULE PO SCH (05:00)
[2024-09-11] MEDS: LORazepam 1 MG TABLET PO SCH (05:59)
[2024-09-12] MEDS ORDERED: LORazepam 0.5 MG TABLET PO PRN
[2024-09-12] MEDS ORDERED: chlordiazePOXIDE HCL 10 MG CAPSULE PO SCH (05:00)
[2024-09-12] MEDS: LORazepam 0.5 MG TABLET PO SCH (05:40)
[2024-09-12 12:43] VITALS: RESP 16
[2024-09-12] MEDS: NICOTINE POLACRILEX 4 MG GUM BUC PRN (14:55)
[2024-09-13] MEDS ORDERED: chlordiazePOXIDE HCL 10 MG CAPSULE PO ONE (05:00)
[2024-09-13] MEDS: LORazepam 0.5 MG TABLET PO ONE (05:53)
[2024-09-13 13:24] VITALS: BP 118/73; PULSE 75; TEMP 98
== END 2024-09-13 16:04 | disposition home or self-care (01) | DRG 775 ==
LOC: YASAS 21:37 → Y6N 23:21
PROVIDERS: ADMIT Allergy & Immunology; ATTEND Surgery
PROC: HZ2ZZZZ Detoxification Services for Substance Abuse Treatment (ICD-10-PCS; principal; 2024-09-07)
DX: F10.230 Alcohol dependence with withdrawal, uncomplicated (principal); F10.288 Alcohol dependence with other alcohol-induced disorder; F12.20 Cannabis dependence, uncomplicated; F17.213 Nicotine dependence, cigarettes, with withdrawal; F10.280 Alcohol dependence with alcohol-induced anxiety disorder; F32.A Depression, unspecified; I10 Essential (primary) hypertension; R74.01 Elevation of levels of liver transaminase levels; Z59.00 Homelessness unspecified
CPT/HCPCS: 36415; 71046-TC-FY; 80053; 80305; 80307; 81025; 83036; 84450; 85027; 86780

== ENCOUNTER 2024-10-28 21:44 | Inpatient (IN) | payer OTHER ==
[2024-10-28 22:28] VITALS: BMI 17.9
[2024-10-28] MEDS ORDERED: P-EPHED 60MG/TRIPROLIDI 2.5MG TABLET PO PRN (22:40)
[2024-10-28] MEDS ORDERED: MAGNESIUM HYDROX 2400MG/30ML ORAL SUSPENSION 30 ML CUP PO PRN (22:40)
[2024-10-28] MEDS ORDERED: guaiFENesin 600 MG TABLET.ER (FP) PO PRN (22:40)
[2024-10-28] MEDS ORDERED: MAG HYDROX/AL HYDROX/SIMETH 30 ML UNIT-DOSE CUP PO PRN (22:40)
[2024-10-28] MEDS ORDERED: BISMUTH SUBSALICYLATE 524 MG/30 ML PO PRN (22:40)
[2024-10-28] MEDS ORDERED: ONDANSETRON *ODT* 4 MG TABLET SL PRN (22:40)
[2024-10-28] MEDS ORDERED: LOPERAMIDE HCL 2 MG CAPSULE PO PRN (22:40)
[2024-10-28] MEDS ORDERED: POLYETHYLENE GLYCOL (HEALTHYLAX) 3350 17 GM PACKET PO PRN (22:40)
[2024-10-28] MEDS ORDERED: ACETAMINOPHEN 325 MG TABLET (FP) PO PRN (22:40)
[2024-10-28] MEDS ORDERED: IBUPROFEN 600 MG TABLET (FP) PO PRN (22:40)
[2024-10-28] MEDS ORDERED: BENZOCAINE/MENTHOL (CHLORASEPTIC ) LOZENGE MM PRN (22:40)
[2024-10-28] MEDS ORDERED: BENZONATATE 200 MG CAPSULE PO PRN (22:40)
[2024-10-28] MEDS ORDERED: IBUPROFEN 400 MG TABLET (FP) PO PRN (22:40)
[2024-10-28] MEDS ORDERED: DICYCLOMINE HCL 10 MG CAPSULE PO PRN (22:40)
[2024-10-28] MEDS ORDERED: chlordiazePOXIDE HCL 25 MG CAPSULE ONE (23:18)
[2024-10-28] MEDS ORDERED: METOPROLOL TARTRATE 25 MG TABLET (FP) ONE (23:19)
[2024-10-28] MEDS: chlordiazePOXIDE HCL 25 MG CAPSULE PO SCH (23:23)
[2024-10-28] MEDS: METOPROLOL TARTRATE 25 MG TABLET (FP) PO ONE (23:23)
[2024-10-29] MEDS: hydrOXYzine PAMOATE 25 MG CAPSULE (FP) PO PRN (06:05)
[2024-10-29] MEDS: NICOTINE POLACRILEX 2 MG GUM BC PRN (06:06)
[2024-10-29] MEDS: NICOTINE 14 MG/24 HOURS TOPICAL PATCH TD SCH (12:25)
[2024-10-29] MEDS: METHOCARBAMOL 500 MG TABLET PO PRN (14:21)
[2024-10-29 16:07] LABS: POTASSIUM 3.9 mmol/L (3.5-5.1)
[2024-10-29 16:15] LABS: ALBUMIN 3.7 g/dl (3.4-5.0); BLOOD UREA NITROGEN 10.8 mg/dL (7-18); CALCIUM 8.6 mg/dL (8.5-10.1); HEMATOCRIT 33.3 % (32.4-45.2); HEMOGLOBIN 10.7 GM/dL (10.7-15.3); MCH 27.8 pg (25.7-33.7); MCHC 32.2 g/dl (32.0-36.0); MEAN CELL VOLUME 86.2 fl (80-96); MEAN PLT VOLUME 9.4 fl (7.5-11.1); PLATELET COUNT 210 10^3/uL (134-434); RBC 3.86 M/mm3 (3.60-5.2); RDW 14.6 % (11.6-15.6)
[2024-10-29 16:18] LABS: CREATININE 0.5 mg/dL (0.55-1.3)
[2024-10-29 16:20] LABS: BILIRUBIN,TOTAL 0.2 mg/dL (0.2-1); TOT PROT 6.8 g/dl (6.4-8.2)
[2024-10-29] MEDS: THIAMINE 100 MG TABLET PO SCH (23:01)
[2024-10-29] MEDS: MELATONIN 5 MG TABLETS PO SCH (23:01)
[2024-10-30] MEDS: chlordiazePOXIDE HCL 25 MG CAPSULE PO SCH (05:55)
[2024-10-30] MEDS: chlordiazePOXIDE HCL 25 MG CAPSULE PO PRN (14:03)
[2024-10-30 17:41] VITALS: RESP 18
[2024-10-30 20:53] VITALS: BP 144/104; PULSE 79; TEMP 98
[2024-10-30] MEDS: cloNIDine HCL 0.1 MG TABLET PO ONE (21:56)
[2024-10-31] MEDS ORDERED: chlordiazePOXIDE HCL 10 MG CAPSULE PO PRN
[2024-10-31] MEDS ORDERED: chlordiazePOXIDE HCL 10 MG CAPSULE PO SCH (05:00)
[2024-11-01] MEDS ORDERED: chlordiazePOXIDE HCL 10 MG CAPSULE PO SCH (05:00)
[2024-11-02] MEDS ORDERED: chlordiazePOXIDE HCL 10 MG CAPSULE PO ONE (05:00)
== END 2024-10-30 22:17 | disposition left against medical advice (07) | DRG 770 ==
LOC: YASAS 21:44 → Y6N 22:48
PROVIDERS: ADMIT Allergy & Immunology; ATTEND Surgery
PROC: HZ2ZZZZ Detoxification Services for Substance Abuse Treatment (ICD-10-PCS; principal; 2024-10-28)
DX: F10.230 Alcohol dependence with withdrawal, uncomplicated (principal); F14.10 Cocaine abuse, uncomplicated; F12.20 Cannabis dependence, uncomplicated; F17.210 Nicotine dependence, cigarettes, uncomplicated; I10 Essential (primary) hypertension; Z86.59 Personal history of other mental and behavioral disorders
CPT/HCPCS: 36415; 80053; 80305; 80307; 81025; 85027; 86803